=== PATIENT | female | born 1965 | race Caucasian/White ===

== ENCOUNTER 2017-06-26 14:44 | Emergency (ER) | payer BC ==
[2017-06-26] MEDS ORDERED: Sodium Chloride 0.9% 1,000 ML IV ONE (14:56)
[2017-06-26] MEDS ORDERED: HYDROmorphone 1 MG/ML Syringe IVPUSH ONE (14:57)
[2017-06-26] MEDS ORDERED: Ondansetron 4 MG/2 ML SDV IVPUSH ONE (14:57)
--- NOTE | 2017-06-26 15:03 | EDM.PDOC ---
ED HPI GENERAL MEDICAL PROBLEM - General Chief Complaint: Abdominal Pain Stated Complaint: PT WOULD LIKE TO BE SEEN(DR. ENRIQUEZ) Time Seen by Provider: 06/26/17 14:53 - History of Present Illness INITIAL COMMENTS - FREE TEXT/NARRATIVE: HISTORY AND PHYSICAL: History of present illness: Patient is a 51-year-old female presented as a transfer from [facility] for evaluation of right lower quadrant abdominal pain she did have a CT with IV contrast that was negative for appendicitis she was noted to have a right ovarian cyst is no other significant findings she denies fever chills nausea vomiting or any other complaints she was given Toradol for pain routine labs including CBC and chemistry remarkable for white count 15,000 H&H stable at [address] reports a 2.6 cm right ovarian cyst liver spleen adrenals kidneys pancreas were all unremarkable appendix was visualized and was normal in appearance Review of systems: As per history of present illness and below otherwise all systems reviewed and negative. Past medical history: As per history of present illness and as reviewed below otherwise noncontributory. Surgical history: As per history of present illness and as reviewed below otherwise noncontributory. Social history: No reported history of drug or alcohol abuse. Family history: As per history of present illness and as reviewed below otherwise noncontributory. Physical exam: HEENT: Atraumatic, normocephalic, pupils reactive, negative for conjunctival pallor or scleral icterus, mucous membranes moist, throat clear, neck supple, nontender, trachea midline. Lungs: Clear to auscultation, breath sounds equal bilaterally, chest nontender. Heart: S1S2, regular, negative for clicks, rubs, or JVD. Abdomen: Soft, nondistended, significant tenderness in the right lower quadrant some slight guarding no rebound. Negative for masses or hepatosplenomegaly. Negative for costovertebral tenderness. Pelvis: Stable nontender. Genitourinary: Deferred. Rectal: Deferred. Extremities: Atraumatic, negative for cords or calf pain. Neurovascular unremarkable. Neuro: Awake, alert, oriented. Cranial nerves II through XII unremarkable. Cerebellum unremarkable. Motor and sensory unremarkable throughout. Exam nonfocal. Diagnostics: Pelvic ultrasound Therapeutics: Saline 1 L bolus Dilaudid 1 mg IV Zofran 4 mg IV Impression: #1 abdominal pain #2 right ovarian cyst Definitive disposition and diagnosis as appropriate pending reevaluation and review of above. 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 , Musculoskeletal History: Reports: Arthritis Psychiatric History: Reports: Anxiety Other Psychiatric History: malaise, fatigue Endocrine/Metabolic History: Reports: Obesity/BMI 30+ - Past Surgical History Female Surgical History: Reports: Section, Tubal Ligation Social & Family History - Tobacco Use Smoking Status *Q: Never Smoker Month Tobacco Last Used: 2013 Second Hand Smoke Exposure: Yes - Alcohol Use Days Per Week of Alcohol Use: 1 Number of Drinks Per Day: 0 Total Drinks Per Week: 0 - Recreational Drug Use Recreational Drug Use: No Drug Use in Last 12 Months: No ED ROS GENERAL - Review of Systems Review Of Systems: ROS reveals no pertinent complaints other than HPI. ED EXAM, GENERAL - Physical Exam Exam: See Below (See dictation) Course - Vital Signs Last Recorded V/S: Last Vital Signs Temp 37.1 C 06/26/17 14:44 Pulse 92 06/26/17 14:44 Resp 18 06/26/17 14:44 BP 150/82 H 06/26/17 14:44 Pulse Ox 98 06/26/17 14:44 - Orders/Labs/Meds Meds: Medications Discontinued Medications Generic Name Dose Route Start Last Admin Trade Name Hayley PRN Reason Stop Dose Admin Hydromorphone HCl 1 mg 06/26/17 14:57 06/26/17 15:04 Dilaudid IVPUSH 06/26/17 14:58 1 mg ONETIME ONE Administration Sodium Chloride 1,000 mls @ 999 mls/hr 06/26/17 14:56 06/26/17 15:04 Normal Saline IV 06/26/17 15:56 999 mls/hr .Bolus ONE Administration Ondansetron HCl 4 mg 06/26/17 14:57 06/26/17 15:04 Zofran IVPUSH 06/26/17 14:58 4 mg ONETIME ONE Administration Departure - Departure Time of Disposition: 16:16 Disposition: Home, Self-Care 01 Condition: Good Clinical Impression: Ovarian cyst - Discharge Information Referrals: PCP,None [Primary Care Provider] - Forms: ED Department Discharge Additional Instructions: The following information is given to patients seen in the emergency department who are being discharged to home. This information is to outline your options for follow-up care. We provide all patients seen in our emergency department with a follow-up referral. The need for follow-up, as well as the timing and circumstances, are variable depending upon the specifics of your emergency department visit. If you don't have a primary care physician on staff, we will provide you with a referral. We always advise you to contact your personal physician following an emergency department visit to inform them of the circumstance of the visit and for follow-up with them and/or the need for any referrals to a consulting specialist. The emergency department will also refer you to a specialist when appropriate. This referral assures that you have the opportunity for followup care with a specialist. All of these measure are taken in an effort to provide you with optimal care, which includes your followup. Under all circumstances we always encourage you to contact your private physician who remains a resource for coordinating your care. When calling for followup care, please make the office aware that this follow-up is from your recent emergency room visit. If for any reason you are refused follow-up, please contact the [facility] emergency department at and asked to speak to the emergency department charge nurse. [facility] - Women's [facility] [address] [place] [id number] Lortab as prescribed follow-up primary medical doctor and SHIPPING COORDINATOR as discussed call to schedule appointment return as needed as discussed
--- NOTE | 2017-06-26 15:47 | US ---
EXAMINATION: Transabdominal and transvaginal pelvic ultrasound HISTORY: Pain COMPARISON: 06/26/2017 TECHNIQUE: Grayscale, color Doppler, and spectral Doppler images obtained transvaginally and transabd ominally. FINDINGS: The uterus appears normal in size, contour, and echogenicity without a focal uterine mass. Endometrial stripe thickness measures 7 mm. No significant free pelvic fluid. Right ovary is grossly normal in size and echogenicity. There is a 2.8 cm mildly complex cyst within the right ovary. Normal color and spectral Doppler flow is noted. History of left nephrectomy. Otherw ise no adnexal masses. IMPRESSION: 1. Mildly echogenic 2.8 cm right ovarian cyst. Consider follow-up imaging in 2 menstrual cycles.
[2017-06-26 17:18] VITALS: BP 138/84
== END 2017-06-26 16:26 | disposition home or self-care (01) ==
LOC: MW.ED 14:44
DX: N83.201 Unspecified ovarian cyst, right side (principal); F41.9 Anxiety disorder, unspecified; Z79.899 Other long term (current) drug therapy; Z77.22 Contact with and (suspected) exposure to environmental tobacco smoke (acute) (chronic)
CPT/HCPCS: 76856; 96361; 96374; 96375; 99284; J1170; J2405; J7040

== ENCOUNTER 2017-07-11 10:01 | Day surgery (SDC) | payer BC ==
[2017-07-10 12:47] LABS: CHLORIDE,CL 104 mmol/L (98-110); SODIUM,NA 137 mmol/L (136-146)
[~2017-07-11 10:01] MED LIST: Lactated Ringers 1,000 ML IV SCH; Sodium Chloride 0.9% 10 ML Syringe FLUSH PRN; Sodium Chloride 0.9% 2.5 ML Syringe FLUSH PRN; ceFAZolin 2 GM in Premix Bag 1 BAG IV ONE; fentaNYL 100 MCG/2 ML SDV IVPUSH PRN
[2017-07-11] MEDS ORDERED: Scopolamine 1.5 MG Transdermal Patch TRDERM PRN (11:04)
[2017-07-11] MEDS ORDERED: Rocuronium 10 MG/ML 10 ML Syringe ONE (11:06)
[2017-07-11] MEDS ORDERED: Lidocaine 2% 5 ML SDV ONE (11:06)
[2017-07-11] MEDS ORDERED: Propofol 200 MG/20 ML SDV ONE (11:06)
[2017-07-11] MEDS ORDERED: Ondansetron 4 MG/2 ML SDV ONE (11:06)
[2017-07-11] MEDS ORDERED: Midazolam 1 MG/ML 2 ML SDV ONE (11:07)
--- NOTE | 2017-07-11 13:15 | PCM.PREANE ---
Preanesthetic Assessment - Anesthesia/Transfusion/Family Hx Anesthesia History: Prior Anesthesia Without Reaction Family History of Anesthesia Reaction: No Transfusion History: No Prior Transfusion(s) Intubation History: Unknown - Review of Systems General: No Symptoms Pulmonary: No Symptoms Cardiovascular: No Symptoms Gastrointestinal: No Symptoms Neurological: No Symptoms Other: Reports: None - Physical Assessment O2 Sat by Pulse Oximetry: 96 Respiratory Rate: 16 Vital Signs: Last Vital Signs Temp 36.5 C 07/11/17 10:25 Pulse 78 07/11/17 10:25 Resp 16 07/11/17 10:25 BP 120/61 07/11/17 10:55 Pulse Ox 96 07/11/17 10:25 Height: 1.6 m Weight: 118.841 kg ASA Class: 2 Mental Status: Alert & Oriented x3 Airway Class: Mallampati = 3 Dentition: Reports: Normal Dentition Thyro-Mental Finger Breadths: 2 Mouth Opening Finger Breadths: 2 (very small mouth - needs scope fot intubation) ROM/Head Extension: Limited/Partial Lungs: Clear to Auscultation, Normal Respiratory Effort Cardiovascular: Regular Rate, Regular Rhythm - Lab Values: Laboratory Last Values WBC 13.70 K/uL (4.0-11.0) H 07/10/17 10:37 RBC 4.71 M/uL (4.30-5.90) 07/10/17 10:37 Hgb 13.7 g/dL (12.0-16.0) 07/10/17 10:37 Hct 41.9 % (36.0-46.0) 07/10/17 10:37 MCV 89.0 fL (80.0-98.0) 07/10/17 10:37 MCH 29.1 pg (27.0-32.0) 07/10/17 10:37 MCHC 32.7 g/dL (31.0-37.0) 07/10/17 10:37 RDW Std Deviation 47.9 fl (28.0-62.0) 07/10/17 10:37 RDW Coeff of Beau 15 % (11.0-15.0) 07/10/17 10:37 Plt Count 418 K/uL (150-400) H 07/10/17 10:37 MPV 9.70 fL (7.40-12.00) 07/10/17 10:37 Nucleated RBC % 0.0 /100WBC 07/10/17 10:37 Nucleated RBCs # 0 K/uL 07/10/17 10:37 Sodium 137 mmol/L (136-146) 07/10/17 10:37 Potassium 3.8 mmol/L (3.5-5.1) 07/10/17 10:37 Chloride 104 mmol/L (98-110) 07/10/17 10:37 Carbon Dioxide 25 mmol/L (21-31) 07/10/17 10:37 BUN 13 mg/dL (6.0-23.0) 07/10/17 10:37 Creatinine 0.7 mg/dL (0.6-1.5) 07/10/17 10:37 Est Cr Clr Drug Dosing 79.54 mL/min 07/10/17 10:37 Estimated GFR (MDRD) > 60.0 ml/min 07/10/17 10:37 Glucose 106 mg/dL (60-110) 07/10/17 10:37 Calcium 9.4 mg/dL (8.8-10.8) 07/10/17 10:37 HCG, Qual NEGATIVE (NEG) 07/10/17 10:37 Blood Type A POSITIVE 07/10/17 10:37 Antibody Screen NEGATIVE 07/10/17 10:37 - Allergies Allergies/Adverse Reactions: Allergies Allergy/AdvReac Type Severity Reaction Status Date / Time No Known Allergies Allergy Verified 07/11/17 11:00 - Blood Blood Available: No - Anesthesia Plan Pre-Op Medication Ordered: None - Acknowledgements Anesthesia Type Planned: General Anesthesia Pt an Appropriate Candidate for the Planned Anesthesia: Yes Alternatives and Risks of Anesthesia Discussed w Pt/Guardian: Yes Pt/Guardian Understands and Agrees with Anesthesia Plan: Yes PreAnesthesia Questionnaire - Past Health History Medical/Surgical History: Denies Medical/Surgical History HEENT History: Reports: Impaired Vision, Other (See Below) Other HEENT History: glasses Gastrointestinal History: Reports: Diverticulosis Genitourinary History: Reports: None 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 , Musculoskeletal History: Reports: Arthritis Psychiatric History: Reports: Anxiety Endocrine/Metabolic History: Reports: Obesity/BMI 30+ (BMI 46.4) - Past Surgical History Head Surgeries/Procedures: Reports: None GI Surgical History: Reports: Colonoscopy Other GI Surgeries/Procedures: LLQ pain Female Surgical History: Reports: Section, Tubal Ligation Other Female Surgeries/Procedures: hx of laparoscopy for ovarian cystectomy - SUBSTANCE USE Smoking Status *Q: Former Smoker Tobacco Use Within Last Twelve Months: No Second Hand Smoke Exposure: Yes Days Per Week of Alcohol Use: 1 Number of Drinks Per Day: 0 Total Drinks Per Week: 0 Recreational Drug Use History: No - HOME MEDS Home Medications: Home Meds Escitalopram [Lexapro] 20 mg PO DAILY 09/23/15 [History] - CURRENT (IN HOUSE) MEDS Current Meds: Current Medications Fentanyl (Sublimaze) 50 mcg IVPUSH .Q5MIN PRN PRN Reason: Pain Lactated Ringer's (Ringers, Lactated) 1,000 mls @ 500 mls/hr IV .BOLUS RUTH Last Admin: 07/11/17 10:31 Dose: 500 mls/hr Acetaminophen 1,000 mg/ Premix 100 mls @ 400 mls/hr IV .ONETIME RUTH Scopolamine (Transderm-Scop) 1.5 mg TRDERM .ONCE PRN PRN Reason: Post Op Nausea Sodium Chloride (Saline Flush) 10 ml FLUSH ASDIRECTED PRN PRN Reason: Keep Vein Open Sodium Chloride (Saline Flush) 2.5 ml FLUSH ASDIRECTED PRN PRN Reason: Keep Vein Open Discontinued Medications Cefazolin Sodium/Dextrose 2 gm (/ Premix) 50 mls @ 100 mls/hr IV ONETIME ONE Stop: 07/10/17 09:49 Lidocaine (Xylocaine-Mpf 2%) Confirm Administered Dose 5 ml .ROUTE .STK-MED ONE Stop: 07/11/17 11:07 Midazolam HCl (Versed 1 Mg/Ml) Confirm Administered Dose 2 mg .ROUTE .STK-MED ONE Stop: 07/11/17 11:08 Ondansetron HCl (Zofran) Confirm Administered Dose 4 mg .ROUTE .STK-MED ONE Stop: 07/11/17 11:07 Propofol (Diprivan 20 Ml) Confirm Administered Dose 200 mg .ROUTE .STK-MED ONE Stop: 07/11/17 11:07 Rocuronium Cogswell (Zemuron) Confirm Administered Dose 100 mg .ROUTE .STK-MED ONE Stop: 07/11/17 11:07
[2017-07-11] MEDS ORDERED: Acetaminophen 1,000 MG in Premix Bag 1 BAG IV SCH (13:30)
[2017-07-11] MEDS ORDERED: Fluorescein 5 ML Vial ONE ×2 (14:08→14:29)
[2017-07-11] MEDS ORDERED: Octyl 2-Cyanoacrylate 1 Tube ONE (14:29)
[2017-07-11] MEDS ORDERED: fentaNYL 250 MCG/5 ML SDV ONE (14:37)
[2017-07-11] MEDS ORDERED: Succinylcholine/Normal Saline 200 MG/10 ML Syringe ONE (14:59)
[2017-07-11] MEDS ORDERED: ceFAZolin 1 GM Vial ONE (15:09)
[2017-07-11] MEDS ORDERED: Sodium Chloride 0.9% 20 ML ONE (15:09)
[2017-07-11] MEDS ORDERED: Neostigmine Methylsulfate 1 MG/ML 5 ML Syringe ONE (15:10)
[2017-07-11] MEDS ORDERED: Furosemide 40 MG/4 ML VIAL ONE (15:21)
[2017-07-11] MEDS ORDERED: fentaNYL 100 MCG/2 ML SDV ONE ×2 (15:32→15:53)
[2017-07-11] MEDS ORDERED: hydrALAZINE 20 MG/ML SDV ONE (15:55)
[2017-07-11] MEDS ORDERED: Ondansetron 4 MG/2 ML SDV IVPUSH PRN (17:19)
[2017-07-11] MEDS ORDERED: Ketorolac 30 MG/ML SDV IVPUSH PRN (17:19)
[2017-07-11] MEDS ORDERED: Acetaminophen/oxyCODONE 325-5 MG Tab PO PRN (17:19)
[2017-07-11] MEDS ORDERED: Morphine 2 MG/ML Syringe IVPUSH PRN (17:19)
[2017-07-11] MEDS ORDERED: Ketorolac 30 MG/ML SDV IVPUSH ONE (17:19)
[2017-07-11] MEDS ORDERED: Promethazine 25 MG/ML SDV IM PRN (17:19)
--- NOTE | 2017-07-11 17:22 | PCM.OPNOTE ---
- General Post-Op/Procedure Note Date of Surgery/Procedure: 07/11/17 Operative Procedure(s): TLH BSO Cysto Post-Op Diagnosis: Same Primary Surgeon: Everton Vergara Parquetry Floor Layer: Jacqueline Wilson EBL in mLs: 100 Complications: None Condition: Good
[2017-07-11] MEDS ORDERED: Belladonna Alkaloids/Opium 16.2-30 MG Supp RECTAL ONE (17:43)
[2017-07-11] MEDS ORDERED: Belladonna Alkaloids/Opium 16.2-30 MG Supp ONE (17:45)
--- NOTE | 2017-07-11 18:15 | PCM.POSTAN ---
POST ANESTHESIA ASSESSMENT - MENTAL STATUS Mental Status: Alert, Oriented - RESPIRATORY Respiratory Status: Respiratory Rate WNL, Airway Patent, O2 Saturation Stable - CARDIOVASCULAR CV Status: Pulse Rate WNL, Blood Pressure Stable - GASTROINTESTINAL GI Status: No Symptoms - POST OP HYDRATION Hydration Status: Adequate & Stable
--- NOTE | 2017-07-11 22:02 | OR ---
SURGEON: Everton Vergara MD DATE OF PROCEDURE: PREOPERATIVE DIAGNOSIS: Pelvic pain, right ovarian cyst. POSTOPERATIVE DIAGNOSIS: Pelvic pain, right ovarian cyst. OPERATION PERFORMED: Multiple puncture diagnostic laparoscopy, total laparoscopic hysterectomy, laparoscopic bilateral salpingo-oophorectomy, and cystoscopy. MOVIE EXTRA: JS Gentile ANESTHESIA: General endotracheal intubation, Jonathan Kingsley and Dr. Mary. ESTIMATED BLOOD LOSS: 100 mL. COMPLICATIONS: None. FINDING: A 5 cm cyst in the right ovary. Otherwise, the pelvis is normal. INDICATION FOR SURGERY: Colo refer to the admit note. PROCEDURE IN DETAIL: The patient was brought to the OR, properly identified. After adequate level of general anesthesia, Duque catheter was placed in the bladder and surgical manipulator placed in the uterus for manipulation. The operation shifted abdominally. Stab wound done beneath the umbilicus. The Veress needle was placed in the peritoneal cavity and that cavity insufflated 3.5 L of carbon dioxide. Using Visiport technique, 5 mm trocar was entered centrally and then 10-12 trocar placed in the left iliac fossa and 5 mm trocar in the right iliac fossa. The operation was started by identifying the landmark of the pelvis and then the superior pedicle from both sides coagulated, transected the uterine, tubes and ovary included with the specimen and the round ligament coagulated and transected with the Dio Harmonic scapula, and then the anterior leaf of broad ligament dissected downward medially pushing the bladder completely away from the operative field and the surgeon can feel the rings inside the vagina and then the uterine vessel coagulated, transected at the level of the internal ring utilizing the DIO-7 Harmonic scapula and then the vaginal mucosa entered using the same Harmonic scapula in circular fashion, detaching the cervix from its attachment to the vagina. The cervix, uterus, and both tubes and ovary removed vaginally and pneumoperitoneum re-established by placing vaginal pack in the vagina and then the vaginal cuff closed laparoscopically using 2-0 PDS interrupted sutures. During the process of closing the vagina, a needle was lost and later on by x-ray was determined, it was in the abdomen and then utilizing the CR technique, the needle was localized and removed without any problem. After that, thorough irrigation of the peritoneal cavity, inspection of all the pedicle, which shows no oozing, no bleeding. Fluorescein was given to the patient and cystoscopy was performed. The bladder was intact. Both ureteric orifices were seen with the dye coming from both of them, thus the patency of both ureters verified. Satisfied with these findings, the procedure was ended. Instrument and sponge count were correct. The patient tolerated the procedure well, went to recovery room in stable general condition. JOSIAH DOYLE /[id number]
[2017-07-12] MEDS: Morphine 4 MG/ML Syringe IVPUSH PRN ×2 (00:52→03:23)
[2017-07-12 06:36] LABS: CHLORIDE,CL 105 mmol/L (98-110); SODIUM,NA 138 mmol/L (136-146)
[2017-07-12] MEDS: Acetaminophen/oxyCODONE 325-5 MG Tab PO PRN ×2 (06:59→11:03)
--- NOTE | 2017-07-12 09:50 | PCM.SURGPN ---
- General Info Date of Service: 07/12/17 Functional Status: Reports: Pain Controlled - Review of Systems General: Reports: No Symptoms HEENT: Reports: No Symptoms Pulmonary: Reports: No Symptoms Cardiovascular: Reports: No Symptoms Gastrointestinal: Reports: No Symptoms Genitourinary: Reports: No Symptoms Musculoskeletal: Reports: No Symptoms Skin: Reports: No Symptoms Neurological: Reports: No Symptoms Psychiatric: Reports: No Symptoms - Patient Data Vitals - Most Recent: Last Vital Signs Temp 37.1 C 07/12/17 05:00 Pulse 80 07/12/17 05:00 Resp 20 07/12/17 05:00 BP 132/72 07/12/17 05:00 Pulse Ox 97 07/11/17 23:05 Weight - Most Recent: 118.841 kg I&O - Last 24 Hours: Intake & Output 07/11/17 07/12/17 07/12/17 22:59 06:59 14:59 Intake Total 3500 Balance 3500 Lab Results Last 24 Hrs: Laboratory Results - last 24 hr 07/10/17 07/12/17 07/12/17 Range/Units 10:37 06:00 06:00 WBC 12.86 H (4.0-11.0) K/uL RBC 4.02 L (4.30-5.90) M/uL Hgb 11.6 L (12.0-16.0) g/dL Hct 35.6 L (36.0-46.0) % MCV 88.6 (80.0-98.0) fL MCH 28.9 (27.0-32.0) pg MCHC 32.6 (31.0-37.0) g/dL RDW Std Deviation 47.8 (28.0-62.0) fl RDW Coeff of Beau 15 (11.0-15.0) % Plt Count 347 (150-400) K/uL MPV 9.40 (7.40-12.00) fL Neut % (Auto) 73.4 (48.0-80.0) % Lymph % (Auto) 16.3 (16.0-40.0) % [place] % (Auto) 9.2 (0.0-15.0) % Eos % (Auto) 0.9 (0.0-7.0) % Baso % (Auto) 0.2 (0.0-1.5) % Neut # (Auto) 9.4 H (1.4-5.7) K/uL Lymph # (Auto) 2.1 (0.6-2.4) K/uL [place] # (Auto) 1.2 H (0.0-0.8) K/uL Eos # (Auto) 0.1 (0.0-0.7) K/uL Baso # (Auto) 0.0 (0.0-0.1) K/uL Nucleated RBC % 0.0 /100WBC Nucleated RBCs # 0 K/uL Sodium 138 (136-146) mmol/L Potassium 4.6 (3.5-5.1) mmol/L Chloride 105 (98-110) mmol/L Carbon Dioxide 26 (21-31) mmol/L BUN 7 (6.0-23.0) mg/dL Creatinine 0.6 (0.6-1.5) mg/dL Est Cr Clr Drug Dosing 92.79 mL/min Estimated GFR (MDRD) > 60.0 ml/min Glucose 99 (60-110) mg/dL Calcium 8.4 L (8.8-10.8) mg/dL Blood Type A POSITIVE Antibody Screen NEGATIVE Crossmatch See Detail Med Orders - Current: Current Medications Fentanyl (Sublimaze) 50 mcg IVPUSH .Q5MIN PRN PRN Reason: Pain Last Admin: 07/11/17 17:55 Dose: 50 mcg Lactated Ringer's (Ringers, Lactated) 1,000 mls @ 500 mls/hr IV .BOLUS RUTH Last Admin: 07/11/17 10:31 Dose: 500 mls/hr Acetaminophen 1,000 mg/ Premix 100 mls @ 400 mls/hr IV .ONETIME RUTH Last Admin: 07/11/17 14:33 Dose: 400 mls/hr Ketorolac Tromethamine (Toradol) 30 mg IVPUSH Q6H PRN PRN Reason: Pain (severe 7-10) Stop: 07/16/17 17:19 Last Admin: 07/12/17 00:12 Dose: 30 mg Morphine Sulfate (Morphine) 2 mg IVPUSH Q2H PRN PRN Reason: Pain (severe 7-10) Last Admin: 07/11/17 22:39 Dose: 2 mg Morphine Sulfate (Morphine) 4 mg IVPUSH Q2H PRN PRN Reason: Pain (severe 7-10) Last Admin: 07/12/17 03:23 Dose: 4 mg Ondansetron HCl (Zofran) 4 mg IVPUSH Q6H PRN PRN Reason: Nausea/Vomiting Oxycodone/Acetaminophen (Percocet 325-5 Mg) 1 tab PO Q4H PRN PRN Reason: Pain (moderate 4-6) Oxycodone/Acetaminophen (Percocet 325-5 Mg) 2 tab PO Q4H PRN PRN Reason: Pain (moderate 4-6) Last Admin: 07/12/17 06:59 Dose: 2 tab Promethazine HCl (Phenergan) 25 mg IM Q6H PRN PRN Reason: Nausea/Vomiting Scopolamine (Transderm-Scop) 1.5 mg TRDERM .ONCE PRN PRN Reason: Post Op Nausea Sodium Chloride (Saline Flush) 10 ml FLUSH ASDIRECTED PRN PRN Reason: Keep Vein Open Sodium Chloride (Saline Flush) 2.5 ml FLUSH ASDIRECTED PRN PRN Reason: Keep Vein Open Discontinued Medications Belladonna Alkaloids/Opium (B & O Supprettes No. 15a) 1 supp RECTAL ONETIME ONE Stop: 07/11/17 17:44 Last Admin: 07/11/17 17:49 Dose: 1 supp Belladonna Alkaloids/Opium (B & O Supprettes No. 15a) Confirm Administered Dose 1 supp .ROUTE .STK-MED ONE Stop: 07/11/17 17:46 Last Admin: 07/11/17 20:29 Dose: Not Given Cefazolin Sodium (Ancef) Confirm Administered Dose 2 gm .ROUTE .STK-MED ONE Stop: 07/11/17 15:10 Fentanyl (Sublimaze) Confirm Administered Dose 250 mcg .ROUTE .STK-MED ONE Stop: 07/11/17 14:38 Fentanyl (Sublimaze) Confirm Administered Dose 100 mcg .ROUTE .STK-MED ONE Stop: 07/11/17 15:33 Fentanyl (Sublimaze) Confirm Administered Dose 100 mcg .ROUTE .STK-MED ONE Stop: 07/11/17 15:54 Fluorescein Sodium (Ak-Fluor) Confirm Administered Dose 5 ml .ROUTE .STK-MED ONE Stop: 07/11/17 14:09 Fluorescein Sodium (Ak-Fluor) Confirm Administered Dose 5 ml .ROUTE .[facility] ONE Stop: 07/11/17 14:30 Furosemide (Lasix) Confirm Administered Dose 40 mg .ROUTE .[facility] ONE Stop: 07/11/17 15:22 Glycopyrrolate () Confirm Administered Dose 1 mg .ROUTE .[facility] ONE Stop: 07/11/17 15:11 Hydralazine HCl (Apresoline) Confirm Administered Dose 20 mg .ROUTE .[facility] ONE Stop: 07/11/17 15:56 Cefazolin Sodium/Dextrose 2 gm (/ Premix) 50 mls @ 100 mls/hr IV ONETIME ONE Stop: 07/10/17 09:49 Last Admin: 07/11/17 20:27 Dose: Not Given Sodium Chloride (Normal Saline) Confirm Administered Dose 20 mls @ as directed .ROUTE .[facility] ONE Stop: 07/11/17 15:10 Ketorolac Tromethamine (Toradol) 30 mg IVPUSH ONETIME ONE Stop: 07/11/17 17:20 Last Admin: 07/11/17 17:52 Dose: 30 mg Lidocaine (Xylocaine-Mpf 2%) Confirm Administered Dose 5 ml .ROUTE .[facility] ONE Stop: 07/11/17 11:07 Midazolam HCl (Versed 1 Mg/Ml) Confirm Administered Dose 2 mg .ROUTE .[facility] ONE Stop: 07/11/17 11:08 Neostigmine Methylsulfate (Neostigmine) Confirm Administered Dose 5 mg .ROUTE .[facility] ONE Stop: 07/11/17 15:11 Octyl Cyanoacrylate (Dermabond Advance) Confirm Administered Dose 1 applic .ROUTE .[facility] ONE Stop: 07/11/17 14:30 Ondansetron HCl (Zofran) Confirm Administered Dose 4 mg .ROUTE .[facility] ONE Stop: 07/11/17 11:07 Propofol (Diprivan 20 Ml) Confirm Administered Dose 200 mg .ROUTE .[facility] ONE Stop: 07/11/17 11:07 Rocuronium [place] (Zemuron) Confirm Administered Dose 100 mg .ROUTE .[facility] ONE Stop: 07/11/17 11:07 Succinylcholine Chloride (Succinylcholine In Ns Pf) Confirm Administered Dose 200 mg .ROUTE .[facility] ONE Stop: 07/11/17 15:00 - Exam Wound/Incisions: Healing Well General: Alert, Oriented HEENT: Pupils Equal Neck: Supple Lungs: Clear to Auscultation, Normal Respiratory Effort Cardiovascular: Regular Rate, Regular Rhythm GI/Abdominal Exam: Normal Bowel Sounds, Soft, Non-Tender, No Organomegaly, No Distention, No Abnormal Bruit, No Mass, Pelvis Stable Extremities: Normal Inspection, Normal Range of Motion, Non-Tender, No Pedal Edema, Normal Capillary Refill Skin: Warm, Dry, Intact Neurological: No New Focal Deficit Psy/Mental Status: Alert, Normal Affect, Normal Mood - Problem List Review Problem List Initiated/Reviewed/Updated: Yes - My Orders Last 24 Hours: Active Orders 24 hr Category Date Time Status Patient Status [ADT] Routine ADT 07/11/17 17:19 Active Notify Provider Vital Signs [RC] ASDIRECTED Care 07/11/17 17:19 Active Oxygen Therapy [RC] ASDIRECTED Care 07/11/17 17:19 Active RT Incentive Spirometry [RC] Q2HWA Care 07/11/17 17:19 Active Up With Assistance [RC] PER UNIT ROUTINE Care 07/11/17 17:19 Active Up ad Hayde [RC] PER UNIT ROUTINE Care 07/11/17 17:19 Active Vital Signs [RC] PER UNIT ROUTINE Care 07/11/17 17:19 Active Abdomen 1V Flat [CR] Routine Exams 07/11/17 16:33 Taken Fluoro Up To 1Hr [CR] Routine Exams 07/11/17 17:12 Taken RED BLOOD CELLS LP [BBK] Urgent Lab 07/11/17 15:59 Results Acetaminophen [Ofirmev] 1,000 mg Med 07/11/17 13:30 Active Premix Bag 1 bag IV .ONETIME Acetaminophen/oxyCODONE [Percocet 325-5 MG] Med 07/11/17 17:19 Active 1 tab PO Q4H PRN Acetaminophen/oxyCODONE [Percocet 325-5 MG] Med 07/11/17 17:19 Active 2 tab PO Q4H PRN Ketorolac [Toradol] Med 07/11/17 17:19 Active 30 mg IVPUSH Q6H PRN Morphine Med 07/11/17 17:19 Active 2 mg IVPUSH Q2H PRN Morphine Med 01/04/18 17:19 Active 4 mg IVPUSH Q2H PRN Ondansetron [Zofran] Med 07/11/17 17:19 Active 4 mg IVPUSH Q6H PRN Promethazine [Phenergan] Med 07/11/17 17:19 Active 25 mg IM Q6H PRN Scopolamine [Transderm-Scop] Med 07/11/17 11:04 Active 1.5 mg TRDERM .ONCE PRN fentaNYL [Sublimaze] Med 07/11/17 09:04 Active 50 mcg IVPUSH .Q5MIN PRN Peripheral IV Discontinue [OM.PC] Routine Oth 07/11/17 17:19 Ordered Sequential Compression Device [OM.PC] Per Unit Routine Oth 07/11/17 17:19 Ordered Resuscitation Status Routine Resus Stat 07/11/17 17:19 Ordered Medication Orders Fentanyl (Sublimaze) 50 mcg IVPUSH .Q5MIN PRN PRN Reason: Pain Last Admin: 07/11/17 17:55 Dose: 50 mcg Lactated Ringer's (Ringers, Lactated) 1,000 mls @ 500 mls/hr IV .BOLUS RUTH Last Admin: 07/11/17 10:31 Dose: 500 mls/hr Acetaminophen 1,000 mg/ Premix 100 mls @ 400 mls/hr IV .ONETIME RUTH Last Admin: 07/11/17 14:33 Dose: 400 mls/hr Ketorolac Tromethamine (Toradol) 30 mg IVPUSH Q6H PRN PRN Reason: Pain (severe 7-10) Stop: 07/16/17 17:19 Last Admin: 07/12/17 00:12 Dose: 30 mg Morphine Sulfate (Morphine) 2 mg IVPUSH Q2H PRN PRN Reason: Pain (severe 7-10) Last Admin: 07/11/17 22:39 Dose: 2 mg Morphine Sulfate (Morphine) 4 mg IVPUSH Q2H PRN PRN Reason: Pain (severe 7-10) Last Admin: 07/12/17 03:23 Dose: 4 mg Admin: 07/12/17 00:52 Dose: 4 mg Ondansetron HCl (Zofran) 4 mg IVPUSH Q6H PRN PRN Reason: Nausea/Vomiting Oxycodone/Acetaminophen (Percocet 325-5 Mg) 1 tab PO Q4H PRN PRN Reason: Pain (moderate 4-6) Oxycodone/Acetaminophen (Percocet 325-5 Mg) 2 tab PO Q4H PRN PRN Reason: Pain (moderate 4-6) Last Admin: 07/12/17 06:59 Dose: 2 tab Promethazine HCl (Phenergan) 25 mg IM Q6H PRN PRN Reason: Nausea/Vomiting Scopolamine (Transderm-Scop) 1.5 mg TRDERM .ONCE PRN PRN Reason: Post Op Nausea Sodium Chloride (Saline Flush) 10 ml FLUSH ASDIRECTED PRN PRN Reason: Keep Vein Open Sodium Chloride (Saline Flush) 2.5 ml FLUSH ASDIRECTED PRN PRN Reason: Keep Vein Open - Assessment Assessment (Free Text/Narrative):: Status post total laparoscopic hysterectomy and laparoscopic bilateral salpingo- oophorectomy and cystoscopy postoperative day #1 the patient is doing well there is no vaginal bleeding had lab work is within normal limits she is on regular diet she is voiding without any problem had laparoscopic incision is clean and dry - Plan Plan (Free Text/Narrative):: The patient will be sent home today the post hysterectomy instruction is given to the patient she was given prescription for Percocet 7.5/325 for postoperative pain and the patient have an appointment for postoperative checkup in the office in one week
--- NOTE | 2017-07-12 09:51 | PCM.DCSUM1 ---
Discharge Summary - Discharge Data Discharge Date: 07/12/17 Discharge Disposition: Home, Self-Care 01 Condition: Good - Patient Summary/Data Operative Procedure(s) Performed: TLH BSO Cysto - Patient Instructions Diet: Usual Diet as Tolerated Activity: As Tolerated Driving: Do Not Drive Showering/Bathing: November Shower - Discharge Plan Home Medications: Home Meds Escitalopram [Lexapro] 20 mg PO DAILY 09/23/15 [History] Referrals: [facility] [Outside] Everton Vergara MD [Physician] - (1 week- July 22 @ 3:15pm w/ Dr. Vergara 6 week- August 23 @ 10:30am w/ Dr. Vergara ) - Patient Data Vitals - Most Recent: Last Vital Signs Temp 37.1 C 07/12/17 05:00 Pulse 80 07/12/17 05:00 Resp 20 07/12/17 05:00 BP 132/72 07/12/17 05:00 Pulse Ox 97 07/11/17 23:05 Weight - Most Recent: 118.841 kg I&O - Last 24 hours: Intake & Output 07/11/17 07/12/17 07/12/17 22:59 06:59 14:59 Intake Total 3500 Balance 3500 Lab Results - Last 24 hrs: Laboratory Results - last 24 hr 07/10/17 07/12/17 07/12/17 Range/Units 10:37 06:00 06:00 WBC 12.86 H (4.0-11.0) K/uL RBC 4.02 L (4.30-5.90) M/uL Hgb 11.6 L (12.0-16.0) g/dL Hct 35.6 L (36.0-46.0) % MCV 88.6 (80.0-98.0) fL MCH 28.9 (27.0-32.0) pg MCHC 32.6 (31.0-37.0) g/dL RDW Std Deviation 47.8 (28.0-62.0) fl RDW Coeff of Beau 15 (11.0-15.0) % Plt Count 347 (150-400) K/uL MPV 9.40 (7.40-12.00) fL Neut % (Auto) 73.4 (48.0-80.0) % Lymph % (Auto) 16.3 (16.0-40.0) % [place] % (Auto) 9.2 (0.0-15.0) % Eos % (Auto) 0.9 (0.0-7.0) % Baso % (Auto) 0.2 (0.0-1.5) % Neut # (Auto) 9.4 H (1.4-5.7) K/uL Lymph # (Auto) 2.1 (0.6-2.4) K/uL [place] # (Auto) 1.2 H (0.0-0.8) K/uL Eos # (Auto) 0.1 (0.0-0.7) K/uL Baso # (Auto) 0.0 (0.0-0.1) K/uL Nucleated RBC % 0.0 /100WBC Nucleated RBCs # 0 K/uL Sodium 138 (136-146) mmol/L Potassium 4.6 (3.5-5.1) mmol/L Chloride 105 (98-110) mmol/L Carbon Dioxide 26 (21-31) mmol/L BUN 7 (6.0-23.0) mg/dL Creatinine 0.6 (0.6-1.5) mg/dL Est Cr Clr Drug Dosing 92.79 mL/min Estimated GFR (MDRD) > 60.0 ml/min Glucose 99 (60-110) mg/dL Calcium 8.4 L (8.8-10.8) mg/dL Blood Type A POSITIVE Antibody Screen NEGATIVE Crossmatch See Detail Med Orders - Current: Current Medications Fentanyl (Sublimaze) 50 mcg IVPUSH .Q5MIN PRN PRN Reason: Pain Last Admin: 07/11/17 17:55 Dose: 50 mcg Lactated Ringer's (Ringers, Lactated) 1,000 mls @ 500 mls/hr IV .BOLUS RUTH Last Admin: 07/11/17 10:31 Dose: 500 mls/hr Acetaminophen 1,000 mg/ Premix 100 mls @ 400 mls/hr IV .ONETIME RUTH Last Admin: 07/11/17 14:33 Dose: 400 mls/hr Ketorolac Tromethamine (Toradol) 30 mg IVPUSH Q6H PRN PRN Reason: Pain (severe 7-10) Stop: 07/16/17 17:19 Last Admin: 07/12/17 00:12 Dose: 30 mg Morphine Sulfate (Morphine) 2 mg IVPUSH Q2H PRN PRN Reason: Pain (severe 7-10) Last Admin: 07/11/17 22:39 Dose: 2 mg Morphine Sulfate (Morphine) 4 mg IVPUSH Q2H PRN PRN Reason: Pain (severe 7-10) Last Admin: 07/12/17 03:23 Dose: 4 mg Ondansetron HCl (Zofran) 4 mg IVPUSH Q6H PRN PRN Reason: Nausea/Vomiting Oxycodone/Acetaminophen (Percocet 325-5 Mg) 1 tab PO Q4H PRN PRN Reason: Pain (moderate 4-6) Oxycodone/Acetaminophen (Percocet 325-5 Mg) 2 tab PO Q4H PRN PRN Reason: Pain (moderate 4-6) Last Admin: 07/12/17 06:59 Dose: 2 tab Promethazine HCl (Phenergan) 25 mg IM Q6H PRN PRN Reason: Nausea/Vomiting Scopolamine (Transderm-Scop) 1.5 mg TRDERM .ONCE PRN PRN Reason: Post Op Nausea Sodium Chloride (Saline Flush) 10 ml FLUSH ASDIRECTED PRN PRN Reason: Keep Vein Open Sodium Chloride (Saline Flush) 2.5 ml FLUSH ASDIRECTED PRN PRN Reason: Keep Vein Open Discontinued Medications Belladonna Alkaloids/Opium (B & O Supprettes No. 15a) 1 supp RECTAL ONETIME ONE Stop: 07/11/17 17:44 Last Admin: 07/11/17 17:49 Dose: 1 supp Belladonna Alkaloids/Opium (B & O Supprettes No. 15a) Confirm Administered Dose 1 supp .ROUTE .STK-MED ONE Stop: 07/11/17 17:46 Last Admin: 07/11/17 20:29 Dose: Not Given Cefazolin Sodium (Ancef) Confirm Administered Dose 2 gm .ROUTE .STK-MED ONE Stop: 07/11/17 15:10 Fentanyl (Sublimaze) Confirm Administered Dose 250 mcg .ROUTE .STK-MED ONE Stop: 07/11/17 14:38 Fentanyl (Sublimaze) Confirm Administered Dose 100 mcg .ROUTE .STK-MED ONE Stop: 07/11/17 15:33 Fentanyl (Sublimaze) Confirm Administered Dose 100 mcg .ROUTE .ST-MED ONE Stop: 07/11/17 15:54 Fluorescein Sodium (Ak-Fluor) Confirm Administered Dose 5 ml .ROUTE .[facility] ONE Stop: 07/11/17 14:09 Fluorescein Sodium (Ak-Fluor) Confirm Administered Dose 5 ml .ROUTE .[facility]-MED ONE Stop: 07/11/17 14:30 Furosemide (Lasix) Confirm Administered Dose 40 mg .ROUTE .[facility]-MED ONE Stop: 07/11/17 15:22 Glycopyrrolate () Confirm Administered Dose 1 mg .ROUTE .ST-MED ONE Stop: 07/11/17 15:11 Hydralazine HCl (Apresoline) Confirm Administered Dose 20 mg .ROUTE .[facility] ONE Stop: 07/11/17 15:56 Cefazolin Sodium/Dextrose 2 gm (/ Premix) 50 mls @ 100 mls/hr IV ONETIME ONE Stop: 07/10/17 09:49 Last Admin: 07/11/17 20:27 Dose: Not Given Sodium Chloride (Normal Saline) Confirm Administered Dose 20 [facility]ls @ [facility] 07/11/17 15:10 Ketorolac Tromethamine (Toradol) 30 mg IVPUSH ONETIME ONE Stop: 07/11/17 17:20 Last Admin: 07/11/17 17:52 Dose: 30 mg Lidocaine (Xylocaine-Mpf 2%) Confirm Administered Dose 5 ml .ROUTE .[facility] ONE Stop: 07/11/17 11:07 Midazolam HCl (Versed 1 Mg/Ml) Confirm Administered Dose 2 mg .ROUTE .ST-[facility] ONE Stop: 07/11/17 11:08 Neostigmine Methylsulfate (Neostigmine) Confirm Administered Dose 5 mg .ROUTE .[facility] ONE Stop: 07/11/17 15:11 Octyl Cyanoacrylate (Dermabond Advance) Confirm Administered Dose 1 applic .ROUTE .[facility] ONE Stop: 07/11/17 14:30 Ondansetron HCl (Zofran) Confirm Administered Dose 4 mg .ROUTE .[facility] ONE Stop: 07/11/17 11:07 Propofol (Diprivan 20 Ml) Confirm Administered Dose 200 mg .ROUTE .[facility] ONE Stop: 07/11/17 11:07 Rocuronium [place] (Zemuron) Confirm Administered Dose 100 mg .ROUTE .[facility]-MED ONE Stop: 07/11/17 11:07 Succinylcholine Chloride (Succinylcholine In Ns Pf) Confirm Administered Dose 200 mg .ROUTE .STK-MED ONE Stop: 07/11/17 15:00 - Exam General: Reports: Alert, Oriented HEENT: Reports: Pupils Equal, Pupils Reactive, EOMI, Mucous Membr. Moist/[place] Neck: Reports: Supple Lungs: Reports: Clear to Auscultation, Normal Respiratory Effort Cardiovascular: Reports: Regular Rate, Regular Rhythm GI/Abdominal Exam: Normal Bowel Sounds, Soft, Non-Tender, No Organomegaly, No Distention, No Abnormal Bruit, No Mass, Pelvis Stable (Female) Exam: Normal External Exam, Normal Speculum Exam, Normal Bimanual Exam Rectal (Female) Exam: Normal Exam, Normal Rectal Tone Back Exam: Reports: Normal Inspection, Full Range of Motion Extremities: Normal Inspection, Normal Range of Motion, Non-Tender, No Pedal Edema, Normal Capillary Refill Skin: Reports: Warm, Dry, Intact Wound/Incisions: Reports: Healing Well Neurological: Reports: No New Focal Deficit Psy/Mental Status: Reports: Alert, Normal Affect, Normal Mood *Q Meaningful Use (DIS) - VTE *Q VTE Criteria *Q: - Stroke *Q Stroke Criteria *Q: - AMI *Q AMI Criteria *Q:
[2017-07-12 12:48] VITALS: BP 110/58
--- NOTE | 2017-07-12 15:13 | CR ---
EXAM DATE: 07/11/17 PATIENT'S AGE: 51 Patient: ANGELICA BARAJAS Facility: [place], [place] : 1965 Study: XRay Abdomen KUB [id number]/[id number] 5:35:10 PM Ordering Physician: SHAQUILLE WADE MD Final Report: Indication: Patient with laparoscopic surgery and missing a curved needle on the needle count. Technique: Single view supine portable abdomen. Findings: Curvilinear needle is projected over the L5-S1 level in the midline. Laparoscopic port appears to be present with instrumentation projected over the right pelvis. Surgical clips within the left pelvis are noted. Impression: Curvilinear needle is identified in the midline pelvis projected over the L5-S1 level. Dictated by Abdirahman Mooney MD @ Jul 12 2017 9:04AM (Electronic Signature) Report Signed by Proxy. [facility] HOSPITALJeri
--- NOTE | 2017-07-15 08:43 | CR ---
EXAMINATION: Abdomen HISTORY: 4 body COMPARISON: Same day TECHNIQUE: Single view FINDINGS/IMPRESSION: There is a curvilinear metallic area near the metallic instrumentation likely th e needle of concern.
== END 2017-07-12 17:30 | disposition home or self-care (01) ==
LOC: MW.SDS 10:01 → MW.OB 18:35 → MW.SDS 07-12 17:30
PROVIDERS: ATTEND Obstetrics & Gynecology
DX: N83.01 Follicular cyst of right ovary (principal); N80.0 Endometriosis of uterus; N88.8 Other specified noninflammatory disorders of cervix uteri; N72 Inflammatory disease of cervix uteri; N83.02 Follicular cyst of left ovary; F41.9 Anxiety disorder, unspecified; E66.9 Obesity, unspecified; Z88.6 Allergy status to analgesic agent; Z90.89 Acquired absence of other organs; Z68.42 Body mass index [BMI] 45.0-49.9, adult; Z98.51 Tubal ligation status; Z87.891 Personal history of nicotine dependence; Z98.890 Other specified postprocedural states; Z79.899 Other long term (current) drug therapy
CPT/HCPCS: 36415; 58571; 74018; 76000; 80048; 84703; 85025; 85027; 86850; 86900; 86901; A9270; J0360; J0690; J1885; J1940; J2250; J2270; J2405; J3010; J7120; 00840; 88307; J2704

== ENCOUNTER 2019-06-28 14:40 | Emergency (ER) | payer BC ==
[2019-06-28] MEDS ORDERED: Sodium Chloride 0.9% 2.5 ML Syringe FLUSH PRN (14:58)
[2019-06-28] MEDS ORDERED: Sodium Chloride 0.9% 10 ML Syringe FLUSH PRN (14:58)
[2019-06-28] MEDS ORDERED: Ketorolac 30 MG/ML SDV IVPUSH ONE (15:17)
[2019-06-28] MEDS ORDERED: Sodium Chloride 0.9% 1,000 ML IV ONE (15:17)
[2019-06-28] MEDS ORDERED: Ondansetron 4 MG/2 ML SDV IVPUSH ONE (15:17)
--- NOTE | 2019-06-28 15:17 | EDM.PDOC ---
ED HPI GENERAL MEDICAL PROBLEM - General Chief Complaint: Flank Pain Stated Complaint: LOWER RT SIDE HURTS Time Seen by Provider: 06/28/19 15:09 Source of Information: Reports: Patient History Limitations: Reports: No Limitations - History of Present Illness INITIAL COMMENTS - FREE TEXT/NARRATIVE: HISTORY AND PHYSICAL: History of present illness: Patient is a 53-year-old female presents to the ED with complaint of bilateral flank and abdominal pain. She states she started feeling sore in her low back and radiating to her abdomen 2 days ago. She states it has progressively gotten worse. She has had some nausea and vomiting. Denies diarrhea and had a nonbloody bowel movement this morning. She denies injury or trauma, fevers, chills, chest pain, shortness of breath. Past surgical history includes total hysterectomy. Review of systems: As per history of present illness and below otherwise all systems reviewed and negative. Past medical history: As per history of present illness and as reviewed below otherwise noncontributory. Surgical history: As per history of present illness and as reviewed below otherwise noncontributory. Social history: No reported history of drug or alcohol abuse. Family history: As per history of present illness and as reviewed below otherwise noncontributory. Physical exam: General: Patient sitting comfortably in no acute distress and nontoxic appearing HEENT: Atraumatic, normocephalic, pupils reactive, negative for conjunctival pallor or scleral icterus, mucous membranes moist, throat clear, neck supple, nontender, trachea midline. No meningeal signs. Lungs: Clear to auscultation, breath sounds equal bilaterally, chest nontender. Heart: S1S2, regular, negative for clicks, rubs, or overt murmur. Abdomen: No point tenderness. Soft, nondistended, nontender. Negative for masses or hepatosplenomegaly. Negative for costovertebral tenderness. No rigidity, rebound, guarding. Pelvis: Stable nontender. Genitourinary: Deferred. Rectal: Deferred. Spine: No vertebral tenderness to palpation. Pain to palpation of bilateral lumbar paraspinals. Extremities: Atraumatic, negative for cords or calf pain. Neurovascular unremarkable. Neuro: Awake, alert, oriented. Cranial nerves II through XII unremarkable. Cerebellum unremarkable. Motor and sensory unremarkable throughout. Exam nonfocal. Notes: Patient informed of hepatomegaly on CT and advised to follow up on this. Liver enzymes are wnl. Diagnostics: CBC, CMP, lipase, UA Therapeutics: 1L NS IV 30mg Toradol IV 4mg Zofran IV Prescriptions: Impression: Abdominal pain Definitive disposition and diagnosis as appropriate pending reevaluation and review of above. Right Lower Back Pain Score (Numeric/FACES): 9 - Related Data Allergies Allergy/AdvReac Type Severity Reaction Status Date / Time aspirin Allergy Other Verified 06/28/19 14:53 Home Meds: Home Meds Escitalopram [Lexapro] 20 mg PO DAILY 09/23/15 [History] Diclofenac Sodium [Voltaren] 75 mg PO BID 06/28/19 [History] Rosuvastatin [Crestor] 20 mg PO DAILY 06/28/19 [History] Past Medical History - Past Health History Medical/Surgical History: Denies Medical/Surgical History HEENT History: Reports: Impaired Vision, Other (See Below) Other HEENT History: glasses Gastrointestinal History: Reports: Diverticulosis Genitourinary History: Reports: None 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 , Musculoskeletal History: Reports: Arthritis Psychiatric History: Reports: Anxiety Endocrine/Metabolic History: Reports: Obesity/BMI 30+ - Infectious Disease History Infectious Disease History: Reports: Chicken Pox - Past Surgical History Head Surgeries/Procedures: Reports: None GI Surgical History: Reports: Colonoscopy Other GI Surgeries/Procedures: LLQ pain Female Surgical History: Reports: Section, Hysterectomy, Tubal Ligation Other Female Surgeries/Procedures: hx of laparoscopy for ovarian cystectomy Social & Family History - Family History Family Medical History: Noncontributory - Tobacco Use Smoking Status *Q: Former Smoker Used Tobacco, but Quit: Yes Month/Year Tobacco Last Used: 1998 - Caffeine Use Caffeine Use: Reports: Tea - Recreational Drug Use Recreational Drug Use: No ED ROS GENERAL - Review of Systems Review Of Systems: Comprehensive ROS is negative, except as noted in HPI. ED EXAM, RENAL/ - Physical Exam Exam: See Below (see dictation) Course - Vital Signs Last Recorded V/S: Last Vital Signs Temp 96.7 F 06/28/19 14:54 Pulse 82 06/28/19 14:54 Resp 20 06/28/19 14:54 BP 119/92 H 06/28/19 14:54 Pulse Ox 99 06/28/19 14:54 - Orders/Labs/Meds Orders: Active Orders 24 hr Category Date Time Status Sodium Chloride 0.9% [Saline Flush] Med 06/28/19 14:58 Active 10 ml FLUSH ASDIRECTED PRN Sodium Chloride 0.9% [Saline Flush] Med 06/28/19 14:58 Active 2.5 ml FLUSH ASDIRECTED PRN Saline Lock Insert [OM.PC] Stat Oth 06/28/19 14:58 Ordered Medication Orders Sodium Chloride (Saline Flush) 10 ml FLUSH ASDIRECTED PRN PRN Reason: Keep Vein Open Sodium Chloride (Saline Flush) 2.5 ml FLUSH ASDIRECTED PRN PRN Reason: Keep Vein Open Labs: Laboratory Tests 06/28/19 06/28/19 06/28/19 Range/Units 14:59 15:21 15:21 WBC 11.63 H (4.0-11.0) K/uL RBC 5.00 (4.30-5.90) M/uL Hgb 14.7 (12.0-16.0) g/dL Hct 44.4 (36.0-46.0) % MCV 88.8 (80.0-98.0) fL MCH 29.4 (27.0-32.0) pg MCHC 33.1 (31.0-37.0) g/dL RDW Std Deviation 46.9 (28.0-62.0) fl RDW Coeff of Beau 15 (11.0-15.0) % Plt Count 392 (150-400) K/uL MPV 10.00 (7.40-12.00) fL Neut % (Auto) 59.0 (48.0-80.0) % Lymph % (Auto) 27.4 (16.0-40.0) % [place] % (Auto) 11.1 (0.0-15.0) % Eos % (Auto) 1.7 (0.0-7.0) % Baso % (Auto) 0.8 (0.0-1.5) % Neut # (Auto) 6.9 H (1.4-5.7) K/uL Lymph # (Auto) 3.2 H (0.6-2.4) K/uL [place] # (Auto) 1.3 H (0.0-0.8) K/uL Eos # (Auto) 0.2 (0.0-0.7) K/uL Baso # (Auto) 0.1 (0.0-0.1) K/uL Nucleated RBC % 0.0 /100WBC Nucleated RBCs # 0 K/uL Sodium 139 (136-145) mmol/L Potassium 4.2 (3.5-5.1) mmol/L Chloride 102 (98-107) mmol/L Carbon Dioxide 24.7 (21.0-32.0) mmol/L BUN 12 (7.0-18.0) mg/dL Creatinine 0.7 (0.6-1.0) mg/dL Est Cr Clr Drug Dosing 84.59 mL/min Estimated GFR (MDRD) > 60.0 ml/min Glucose 96 (74-106) mg/dL Calcium 9.7 (8.5-10.1) mg/dL Total Bilirubin 0.4 (0.2-1.0) mg/dL AST 18 (15-37) IU/L ALT 30 (14-63) IU/L Alkaline Phosphatase 72 (46-116) U/L Total Protein 8.0 (6.4-8.2) g/dL Albumin 3.8 (3.4-5.0) g/dL Globulin 4.2 H (2.6-4.0) g/dL Albumin/Globulin Ratio 0.9 (0.9-1.6) Lipase (73-393) U/L Urine Color YELLOW Urine Appearance CLEAR Urine pH 7.5 (5.0-8.0) Ur Specific [place] 1.020 (1.001-1.035) Urine Protein NEGATIVE (NEGATIVE) mg/dL Urine Glucose (UA) NEGATIVE (NEGATIVE) mg/dL Urine Ketones NEGATIVE (NEGATIVE) mg/dL Urine Occult Blood NEGATIVE (NEGATIVE) Urine Nitrite NEGATIVE (NEGATIVE) Urine Bilirubin NEGATIVE (NEGATIVE) Urine Urobilinogen 0.2 (<2.0) EU/dL Ur Leukocyte Esterase NEGATIVE (NEGATIVE) 06/28/19 Range/Units 15:21 WBC (4.0-11.0) K/uL RBC (4.30-5.90) M/uL Hgb (12.0-16.0) g/dL Hct (36.0-46.0) % MCV (80.0-98.0) fL MCH (27.0-32.0) pg MCHC (31.0-37.0) g/dL RDW Std Deviation (28.0-62.0) fl RDW Coeff of Beau (11.0-15.0) % Plt Count (150-400) K/uL MPV (7.40-12.00) fL Neut % (Auto) (48.0-80.0) % Lymph % (Auto) (16.0-40.0) % [place] % (Auto) (0.0-15.0) % Eos % (Auto) (0.0-7.0) % Baso % (Auto) (0.0-1.5) % Neut # (Auto) (1.4-5.7) K/uL Lymph # (Auto) (0.6-2.4) K/uL [place] # (Auto) (0.0-0.8) K/uL Eos # (Auto) (0.0-0.7) K/uL Baso # (Auto) (0.0-0.1) K/uL Nucleated RBC % /100WBC Nucleated RBCs # K/uL Sodium (136-145) mmol/L Potassium (3.5-5.1) mmol/L Chloride (98-107) mmol/L Carbon Dioxide (21.0-32.0) mmol/L BUN (7.0-18.0) mg/dL Creatinine (0.6-1.0) mg/dL Est Cr Clr Drug Dosing mL/min Estimated GFR (MDRD) ml/min Glucose (74-106) mg/dL Calcium (8.5-10.1) mg/dL Total Bilirubin (0.2-1.0) mg/dL AST (15-37) IU/L ALT (14-63) IU/L Alkaline Phosphatase (46-116) U/L Total Protein (6.4-8.2) g/dL Albumin (3.4-5.0) g/dL Globulin (2.6-4.0) g/dL Albumin/Globulin Ratio (0.9-1.6) Lipase 95 (73-393) U/L Urine Color Urine Appearance Urine pH (5.0-8.0) Ur Specific [place] (1.001-1.035) Urine Protein (NEGATIVE) mg/dL Urine Glucose (UA) (NEGATIVE) mg/dL Urine Ketones (NEGATIVE) mg/dL Urine Occult Blood (NEGATIVE) Urine Nitrite (NEGATIVE) Urine Bilirubin (NEGATIVE) Urine Urobilinogen (<2.0) EU/dL Ur Leukocyte Esterase (NEGATIVE) Meds: Medications Generic Name Dose Route Start Last Admin Trade Name Hayley PRN Reason Stop Dose Admin Sodium Chloride 10 ml 06/28/19 14:58 Saline Flush FLUSH ASDIRECTED PRN Keep Vein Open Sodium Chloride 2.5 ml 06/28/19 14:58 Saline Flush FLUSH ASDIRECTED PRN Keep Vein Open Discontinued Medications Generic Name Dose Route Start Last Admin Trade Name Freq PRN Reason Stop Dose Admin Sodium Chloride 1,000 mls @ 999 mls/hr 06/28/19 15:17 06/28/19 15:30 Normal Saline IV 06/28/19 16:17 999 mls/hr STAT ONE Administration Iopamidol 100 ml 06/28/19 16:52 06/28/19 16:53 Isovue Multipack-370 (76%) IVPUSH 06/28/19 16:53 100 ml ONETIME STA Administration Ketorolac Tromethamine 30 mg 06/28/19 15:17 06/28/19 15:31 Toradol IVPUSH 06/28/19 15:18 30 mg ONETIME ONE Administration Morphine Sulfate 2 mg 06/28/19 16:44 06/28/19 16:48 Morphine IVPUSH 06/28/19 16:45 2 mg ONETIME ONE Administration Ondansetron HCl 4 mg 06/28/19 15:17 06/28/19 15:30 Zofran IVPUSH 06/28/19 15:18 4 mg ONETIME ONE Administration Departure - Departure Time of Disposition: 17:07 Disposition: Home, Self-Care 01 Condition: Good Clinical Impression: Abdominal pain - Discharge Information Referrals: PCP,Not In Area [Primary Care Provider] - Forms: ED Department Discharge Additional Instructions: The following information is given to patients seen in the emergency department who are being discharged to home. This information is to outline your options for follow-up care. We provide all patients seen in our emergency department with a follow-up referral. The need for follow-up, as well as the timing and circumstances, are variable depending upon the specifics of your emergency department visit. If you don't have a primary care physician on staff, we will provide you with a referral. We always advise you to contact your personal physician following an emergency department visit to inform them of the circumstance of the visit and for follow-up with them and/or the need for any referrals to a consulting specialist. The emergency department will also refer you to a specialist when appropriate. This referral assures that you have the opportunity for follow-up care with a specialist. All of these measure are taken in an effort to provide you with optimal care, which includes your follow-up. Under all circumstances we always encourage you to contact your private physician who remains a resource for coordinating your care. When calling for follow-up care, please make the office aware that this follow-up is from your recent emergency room visit. If for any reason you are refused follow-up, please contact the [facility] Emergency Department at and asked to speak to the emergency department charge nurse. [facility] [address] [place] [id number] [place] [address] Take norco as needed for severe pain, do not take while driving as it may make you drowsy Follow up with primary care provider Return to ED as needed as discussed Sepsis Event Note - Evaluation Sepsis Screening Result: No Definite Risk - Focused Exam Vital Signs: Vital Signs Temp Pulse Resp BP Pulse Ox 06/28/19 14:54 96.7 F 82 20 119/92 H 99 Date Exam was Performed: 06/28/19 Time Exam was Performed: 17:07 - My Orders Last 24 Hours: My Active Orders 06/28/19 14:58 Sodium Chloride 0.9% [Saline Flush] 10 ml FLUSH ASDIRECTED PRN Sodium Chloride 0.9% [Saline Flush] 2.5 ml FLUSH ASDIRECTED PRN Saline Lock Insert [OM.PC] Stat - Assessment/Plan Last 24 Hours: My Active Orders 06/28/19 14:58 Sodium Chloride 0.9% [Saline Flush] 10 ml FLUSH ASDIRECTED PRN Sodium Chloride 0.9% [Saline Flush] 2.5 ml FLUSH ASDIRECTED PRN Saline Lock Insert [OM.PC] Stat
[2019-06-28 15:50] LABS: BLOOD UREA NITROGEN,BUN 12 mg/dL (7.0-18.0); CARBON DIOXIDE,CO2 24.7 mmol/L (21.0-32.0); CHLORIDE,CL 102 mmol/L (98-107); GLUCOSE RANDOM 96 mg/dL (74-106); POTASSIUM,K 4.2 mmol/L (3.5-5.1); SODIUM,NA 139 mmol/L (136-145)
--- NOTE | 2019-06-28 16:41 | CT ---
HISTORY: Right lower quadrant pain. TECHNIQUE: Contrast-enhanced CT abdomen and pelvis. Coronal and sagittal reformat images obtained. COMPARISON: No comparison studies are available. Findings: The heart size is normal. The lung bases are clear. A few small low-density lesions within liver probably reflect small cysts. Liver is enlarged clear gallbladder, pancreas adrenal glands spleen appears unremarkable. Normal caliber abdominal aorta. Kidneys are unremarkable. Normal appendix. Urinary bladder decompressed. The bowel is unremarkable. No inflammatory change in the abdomen. Hysterectomy. No suspicious bony lesions. Impression : 1. No acute findings in abdomen or pelvis. Normal appendix. 2. Hepatomegaly. Please note that all CT scans at this facility use dose modulation, iterative reconstruction, and/or weight-based dosing when appropriate to reduce radiation dose to as low as reasonably achievable. Dictated by Malgorzata Sheridan MD @ Jun 28 2019 4:34PM Signed by Dr. Malgorzata Sheridan @ Jun 28 2019 4:40PM
[2019-06-28] MEDS ORDERED: Morphine 2 MG/ML Syringe IVPUSH ONE (16:44)
[2019-06-28] MEDS ORDERED: Iopamidol 755 MG/ML 200 ML Multipack Bottle IVPUSH STA (16:52)
[2019-06-28 17:27] VITALS: BP 121/65; PULSE 68
== END 2019-06-28 17:20 | disposition home or self-care (01) ==
LOC: MW.ED 14:40
DX: R10.9 Unspecified abdominal pain (principal); E66.9 Obesity, unspecified; F41.9 Anxiety disorder, unspecified; Z68.42 Body mass index [BMI] 45.0-49.9, adult; Z88.6 Allergy status to analgesic agent; Z87.891 Personal history of nicotine dependence
CPT/HCPCS: 36415; 74177; 80053; 81003; 83690; 85025; 96361; 96374; 96375; 99284; J1885; J2270; J2405; J7030; Q9967; 99283